=== PATIENT | female | born 1950 | race Caucasian/White ===

== ENCOUNTER → 2021-08-12 10:52 | Outpatient (CLI) | payer OTHER, SELFPAY ==
--- NOTE | 2021-08-12 | DI.MRI.S_ITS ---
PROCEDURE: MR FOOT RT WO CON INDICATIONS: Laceration of muscle and tendon TECHNIQUE: Noncontrast sagittal T1 spin echo and T2 fast spin echo with fat saturation, long-axis T1 spin echo and T2 fast spin echo with fat saturation, short-axis T1 spin echo and T2 fast spin echo with fat saturation through the forefoot. COMPARISON: None. FINDINGS: Image quality: Excellent. Bones and joints: No bone marrow contusions or metatarsal stress fractures. The sesamoid bones appear in expected positions, without internal edema. Moderate 1st MTP joint degeneration with subchondral cystic changes. No intraosseous lesions. Soft tissues: The visualized plantar foot muscles demonstrate normal signal and bulk. Visualized flexor and extensor tendons appear intact, without tenosynovitis. The distal insertions of the peroneus brevis and longus tendons appear intact. The principal Lisfranc ligament appears intact. No soft tissue ganglion cysts or bursal fluid collections. Sagittal images demonstrate no evidence for plantar plate tears. Diffuse dorsal subcutaneous edema IMPRESSION: Diffuse dorsal forefoot subcutaneous edema. Visualized flexor and extensor tendons appear grossly intact. Mild diffuse muscle atrophy otherwise unremarkable muscle signal intensity. Dictated by: Edilberto Valiente M.D. on 08/12/2021 at 12:46 Approved by: Edilberto Valiente M.D. on 08/12/2021 at 12:52
--- NOTE | 2021-08-12 | DI.CT.S_ITS ---
PROCEDURE: CT ABDOMEN PELVIS WO CON INDICATIONS: Laceration of muscle and tendon TECHNIQUE: Noncontrast 5 mm thick sections acquired from the diaphragms to the symphysis. 5 mm coronal and sagittal reformats were then performed. For radiation dose reduction, the following was used: automated exposure control, adjustment of mA and/or kV according to patient size. COMPARISON: None. FINDINGS: Image quality: Excellent. ABDOMEN: Lung bases: Lung bases are clear. Heart size is normal. Solid organs: Liver is normal in size. Gallbladder is normal . Pancreas is normal in contours. Spleen is normal in size. No adrenal nodules. Kidneys are normal in size, without hydronephrosis or nephrolithiasis. The left kidney has a 4 centimeters cyst of the inferior pole. Peritoneum and bowel: Unenhanced bowel loops demonstrate normal wall thickness and caliber. No free fluid or air. There is diverticulosis without evidence of diverticulitis. Nodes and vessels: No retroperitoneal or mesenteric adenopathy by size criteria. Aorta and inferior vena cava are normal in caliber. Miscellaneous: No ventral hernias. PELVIS: Genitourinary: Bladder wall thickness is normal. Miscellaneous: No inguinal hernias or adenopathy. Bones: Degenerative changes with no focal abnormality. Postoperative changes of T12 vertebroplasty. Multilevel degenerative disc disease. IMPRESSION: 1. No nephroureterolithiasis. 2. Diverticulosis without evidence of diverticulitis. Dictated by: Esequiel Dhillon M.D. on 08/12/2021 at 14:13 Approved by: Esequiel Dhillon M.D. on 08/12/2021 at 14:20
== END ==
PROVIDERS: Referring Provider Physician Assistant; Visit Provider Physician Assistant
DX: R31.0 Gross hematuria (principal); S96.121A Laceration of muscle and tendon of long extensor muscle of toe at ankle and foot level, right foot, initial encounter; K57.90 Diverticulosis of intestine, part unspecified, without perforation or abscess without bleeding; X58.XXXA Exposure to other specified factors, initial encounter
CPT/HCPCS: 73718; 74176

== ENCOUNTER → 2021-11-14 13:09 | Outpatient (CLI) | payer OTHER, SELFPAY ==
[2021-11-14 14:14] LABS: BUN Creatinine Ratio 18.8 (6-22); Blood Urea Nitrogen 9 mg/dL (7-17); Estimated Glomerular Filt Rate > 60.0 mL/min (>60)
--- NOTE | 2021-11-14 14:24 | DI.CT.S_ITS ---
PROCEDURE: CT ABDOMEN PELVIS WO/W CON INDICATIONS: urgency of urination TECHNIQUE: Optional 5 mm thick noncontrast images acquired from the diaphragm to the symphysis pubis. After the administration of intravenous contrast, 5 mm thick images acquired from the diaphragm to the symphysis pubis after a 10-minute delay. 2 mm thick coronal and sagittal reformats were then performed of the kidneys and ureters. For radiation dose reduction, the following was used: automated exposure control, adjustment of mA and/or kV according to patient size. COMPARISON: [facility], CT, CT ABDOMEN PELVIS WO CON, 08/12/2021, 11:11. FINDINGS: Image quality: Excellent. Lung bases: Lung bases are clear. Heart size is normal. Urinary system: Both kidneys are normal in size, without hydronephrosis or nephrolithiasis on pre-contrast images. No perinephric fat stranding. There is normal bilateral renal enhancement. Renal calyces appear normal in morphology when filled with contrast. Opacified portions of both ureters demonstrate normal caliber. Bladder wall thickness is normal. No calcified bladder stones. Other solid organs: Liver is normal in size and enhancement. Gallbladder is unremarkable . Biliary system is non dilated. Pancreas enhances normally. Spleen is normal in size and enhancement. No adrenal nodules. Peritoneum and bowel: Diverticulosis without evidence of diverticulitis. Normal caliber bowel. No free fluid or air. Nodes and vessels: No retroperitoneal or mesenteric adenopathy by size criteria. Aorta and inferior vena cava are normal in size. There is atherosclerotic calcification involving the aorta and iliac arteries. There is a mild calcified stenosis of the infrarenal abdominal aorta. Abdominal wall: No ventral hernias. Pelvis: No pathologic free pelvic fluid. Small bilateral fat containing inguinal hernias. No inguinal adenopathy. Posterior pelvic floor relaxation with associated rectocele. Bones: Diffuse lumbar degenerative change. Canal stenosis at L4-L5. Remote percutaneous cement fixation of a moderate T12 compression fracture. No acute compression fractures. No lytic or blastic bony lesions. IMPRESSION: 1. No renal stones, ureteral stones, hydronephrosis, or findings suspicious for malignancy. 2. Posterior pelvic floor relaxation with rectocele. 3. Diverticulosis without evidence of diverticulitis. 4. Atherosclerosis with mild infrarenal abdominal aortic stenosis. Dictated by: Dale Palmer M.D. on 11/14/2021 at 15:31 Approved by: Dale Palmer M.D. on 11/14/2021 at 15:41
== END ==
PROVIDERS: Referring Provider Urology; Visit Provider Urology
DX: R39.15 Urgency of urination (principal); R10.2 Pelvic and perineal pain; K57.90 Diverticulosis of intestine, part unspecified, without perforation or abscess without bleeding; I70.0 Atherosclerosis of aorta; I35.0 Nonrheumatic aortic (valve) stenosis; K40.20 Bilateral inguinal hernia, without obstruction or gangrene, not specified as recurrent; R31.29 Other microscopic hematuria; N81.6 Rectocele; T19.1XXA Foreign body in bladder, initial encounter; G89.29 Other chronic pain; F17.200 Nicotine dependence, unspecified, uncomplicated
CPT/HCPCS: 36415; 74178; 82565; 84520

== ENCOUNTER → 2022-02-23 10:08 | Outpatient (CLI) | payer OTHER, SELFPAY | PROVIDERS: Family Provider Physician Assistant; PCP Physician Assistant; Referring Provider Podiatrist; Visit Provider Podiatrist | DX: R20.9 Unspecified disturbances of skin sensation (principal) | CPT/HCPCS: 95886; 95911 ==

== ENCOUNTER 2022-02-25 07:08 | Emergency (ER) | payer OTHER, SELFPAY ==
[2022-02-25 07:39] VITALS: PULSE 91; O2SAT 95
[2022-02-25 07:40] VITALS: BP 125/66; PULSE 94; RESP 22; TEMP 36.8; O2SAT 95; BMI 36.2
--- NOTE | 2022-02-25 07:51 | ED.FALL ---
HPI - Fall General Chief Complaint: Fall Stated Complaint: chest pain, sob, broken ribs Time Seen by Provider: 02/25/22 07:16 Source: patient Mode of arrival: Ambulatory History of Present Illness HPI Narrative: 72-year-old woman with a history of hypothyroidism, osteoporosis with a T12 compression fracture hypertension COPD who was traveling with her who has severe dementia and on February 10 she missed the last and fell backwards landing on a concrete surface with significant back pain and chest pain. They were on their way to the airport and continued their trip. When she was she saw on a VARGAS Vergara at the [facility] [place] in located [facility] who ordered a chest x-ray. Rib fractures 5 in 6 left side were noted along with an effusion. She was treated with a brief course of [place]. She continues to complain of severe pain, discomfort in any position, unable to sleep and increasing dyspnea. She is scheduled for a thoracentesis on March 26 but does not feel that she can wait that long. She has not had fevers, headache, pelvic/hip path/lower extremity pain or tenderness. She is able to walk. There is no shoulder or upper extremity pain. She is not anticoagulated and she does not describe hitting her head. No recent nausea, vomiting or diarrhea. Related Data Previous Rx's Medication Instructions Recorded benzonatate 200 mg capsule 200 mg PO BID-TID PRN #20 cap 02/25/22 oxycodone-acetaminophen 5 mg-325 1 tab PO Q6H PRN #20 tab 02/25/22 mg tablet Allergies Allergy/AdvReac Type Severity Reaction Status Date / Time No Known Drug Allergies Allergy Verified 02/25/22 07:40 Review of Systems Review of Systems Narrative: Remainder of complete review of systems is otherwise unremarkable except for that included in the HPI. Patient History Medical History (Updated 02/25/22 @ 11:43 by Lenka Welsh MD) COPD (chronic obstructive pulmonary disease) Hypertension Hypothyroidism (acquired) Osteoporosis Social History Smoking Status: Current every day smoker Smoking Status: Current every day smoker alcohol intake frequency: a few times a week Alcohol type: wine Substance Use Type: does not use Exam Initial Vital Signs Initial Vital Signs: Vital Signs Pulse Rate 91 H 02/25/22 07:39 Pulse Oximetry 95 02/25/22 07:39 General: Pale, in moderate distress secondary to pain. Leaning against an upright gurney with a pillow for splinting. Able to give a complete and coherent history. Well-nourished well-developed HEENT: Moist mucous membranes, normal sclera with reactive pupils, Neck: No JVD, supple Respiratory: Lungs decreased excursion throughout secondary to pain. Chest: Some minor bruising appreciated the left lower posterior ribs and some likely heating pad associated skin changes over the right lower ribs but contusion isn't entirely ruled out. She does have tenderness with AP compression of her lungs. There is no specific tenderness along thoracic or lumbar spine to palpation. There are no abrasions and no subcutaneous air palpable Cardiac: Regular rate and rhythm no murmurs no bruits Abdomen: Soft, nontender, good bowel tones, no flank pain Skin: Warm and dry, no rashes Neurologic: Grossly neurologically intact with no obvious asymmetries or abnormalities Extremities: No trauma, well perfused Psych: Cooperative, appropriate insight and affect Course Orders Ordered: ED Orders 02/25/22 08:15 CT chest w con Stat 02/25/22 08:31 Complete Blood Count AUTO DIFF Stat Comprehensive Metabolic Panel Stat Lipase Stat Discontinued Medications Ketorolac Tromethamine (Ketorolac 30 Mg/Ml Vial) 15 mg IV NOW ONE Stop: 02/25/22 08:16 Last Admin: 02/25/22 08:43 Dose: 15 mg Documented by: FLIP Vital Signs Vital signs: Vital Signs - 8 hr 02/25/22 07:39 02/25/22 07:40 02/25/22 08:00 Temperature 98.3 F Pulse Rate 91 H 94 H 79 Respiratory Rate 22 Blood Pressure 125/66 116/77 Pulse Oximetry 95 95 96 02/25/22 08:31 02/25/22 09:00 02/25/22 11:16 Temperature Pulse Rate 83 72 80 Respiratory Rate 24 16 Blood Pressure 103/84 120/59 L 128/62 Pulse Oximetry 93 92 94 MDM - Fall Lab Data Result diagrams: 02/25/22 08:31 02/25/22 08:31 Labs: Lab Results 02/25/22 02/25/22 02/25/22 Range/Units 08:31 08:31 08:31 WBC 9.2 (4.5-11.0) X10^3/uL RBC 4.50 (4.0-5.2) X10^6/uL Hgb 16.3 H (12.0-16.0) g/dL Hct 47.7 H (36-46) % MCV 106.2 H (80-100) fL MCH 36.2 H (26-34) PG MCHC 34.1 (30-36) % RDW 14.3 (11.6-14.8) % Plt Count 311 (150-400) X10^3/uL Neut % (Auto) 71.7 (50-75) % Lymph % (Auto) 16.1 L (25-40) % [place] % (Auto) 9.0 (3-14) % Eos % (Auto) 2.3 (2-4) % Baso % (Auto) 0.9 (0-2) % Neut # (Auto) 6600 (6905-2197) /uL Lymph # (Auto) 1500 (1230-4668) /uL [place] # (Auto) 800 (0-900) /uL Eos # (Auto) 200 (0-450) /uL Baso # (Auto) 100 (0-100) /uL Sodium 135 L (137-145) mmol/L Potassium 4.2 (3.4-5.1) mmol/L Chloride 99 (98-107) mmol/L Carbon Dioxide 29 (22-32) mmol/L BUN 6 L (7-17) mg/dL Creatinine 0.53 (0.52-1.04) mg/dL Estimated GFR > 60 (>60) mL/min BUN/Creatinine Ratio 11.3 (6-22) Glucose 93 (80-110) mg/dL Calcium 9.3 (8.4-10.2) mg/dL Total Bilirubin 1.2 (0.2-1.3) mg/dL AST 32 (14-36) IU/L ALT 26 (<35) IU/L Alkaline Phosphatase 124 (38-126) U/L Total Protein 8.0 (6.3-8.2) g/dL Albumin 4.5 (3.5-5.0) g/dL Globulin 3.5 (1.7-4.1) g/dL Albumin/Globulin Ratio 1.3 (1.0-2.8) Lipase 34 (23-300) U/L Imaging Data CT scan - chest: Radiologist's Impression: FINDINGS:? Image quality:? Excellent.? ? Lungs and pleura:? No acute air space opacities.? Mild presumed dependent atelectasis can be seen.? No pleural effusions or pneumothorax.? Central and peripheral airways are patent and normal in caliber.? ? Mediastinum:? Heart size is normal.? There is at least moderate coronary artery calcification.? No pericardial effusion.? No mediastinal or hilar adenopathy by size criteria.? Thoracic aorta and central pulmonary arteries are normal in size.? Esophagus is normal in caliber.? No hiatal hernia.? ? Bones and chest wall:? The left anterior 3rd rib demonstrates a minimally displaced fracture, as on series 3, image 76. There is a potential nondisplaced fracture of the left anterior 4th rib.? There is a mildly displaced rib fracture seen involving the left anterolateral 5th rib, as on series 3, image 106. There is a likely nondisplaced fracture seen involving the left anterior 6th rib, as on series 3, image 148. No additional displaced rib fractures are seen.? ? Accentuated thoracic kyphosis is seen.? Age-appropriate bony degenerative changes are seen.? There is a remote T12 fracture, with vertebroplasty cement.? [id number] dextroconvex scoliosis. ? ? No suspicious bony lesions.? No vertebral body compression fractures.? No axillary or supraclavicular adenopathy by size criteria.? Thyroid gland is small in size.? ? Abdomen:? An enlarged, fatty infiltrated liver can be seen.? There is a 4 cm area relatively increased enhancement seen involving the right lateral liver, as on series 2, image 48 and on series 5, image 45. Along the lateral aspect of the left kidney, there is a water density cyst seen that measures 2.8 cm. The visualized portions of the upper abdominal structures are otherwise unremarkable for imaging technique. ? IMPRESSION:? Left anterolateral rib fractures are seen. ? No associated pneumothorax is seen. ? Enlarged, fatty liver, with potential fatty sparing involving the right liver.? However, in a patient of this age, differential diagnosis includes a mass.? When clinically appropriate, please consider a scheduled liver protocol MRI (without and with contrast) for further evaluation (assuming that there is no contraindication).? ? ? Incidental note is made of: At least moderate coronary artery calcification Remote T12 fracture, with vertebroplasty cement [id number] dextroconvex scoliotic curvature Simple appearing left renal cyst ? Dictated by: Felipe Alonzo M.D. on 02/25/2022 at 8:43? ?? MDM Narrative Medical decision making narrative: 72-year-old woman now 14 days past significant fall with initially diagnosed 2 rib fractures, unable to take a deep breath, sleep, do more than sit upright and was told she had a pleural effusion but and is scheduled for thoracentesis in mid March. She comes in for further evaluation. With known propensity for worse as findings on CT scan given trauma in 72-year-old woman a CT scan of the chest was done and in fact does show a total of 4 left-sided rib fractures without hemopneumothorax, no new compression fractures or additional findings. Patient actually felt quite a bit better with Toradol she is given incentive spirometer and teaching to go with that and will send her home with a prescription for Tessalon to help reduce the cough and Percocet to take along with ibuprofen for pain control. She will follow-up with her primary care physician Discharge Plan Departure Patient Disposition: Home Clinical Impression: Fracture, ribs Qualifiers: Encounter type: initial encounter Fracture type: closed Laterality: left Qualified Code(s): S22.42XA - Multiple fractures of ribs, left side, initial encounter for closed fracture Fall Qualifiers: Encounter type: subsequent encounter Qualified Code(s): W19.XXXD - Unspecified fall, subsequent encounter Instructions: DI for Rib Fracture Activity Restrictions/Additional Instructions: Thank you for coming in today The CT scan of your chest shows a total of 4 broken ribs which explains why your hurting so much. Fortunately, your body has absorbed any of the blood or fluid that was noticed on the x-ray last week. You do not need to have a thoracentesis. Using 400 mg of ibuprofen (2 kbkx-cvl-[id number] pills) and 1 Tylenol every 6 hours can be very helpful in controlling pain. For severe pain use 400 mg of ibuprofen +1 Percocet and if that is not enough particularly to get a couple of hours sleep you can use 2 Percocet. Percocet is narcotic and will make you constipated. Please make sure you are using stool softeners Prescriptions went to [facility] in [place] I hope you continue to heal Prescriptions: New oxycodone-acetaminophen 5-325 mg tablet 1 tab PO Q6H PRN (Reason: pain) Qty: 20 0RF benzonatate 200 mg capsule 200 mg PO BID-TID PRN (Reason: cough) Qty: 20 0RF Referrals: Brandon Vergara PA-C [Primary Care Provider] -
[2022-02-25 08:00] VITALS: BP 116/77; PULSE 79; O2SAT 96
--- NOTE | 2022-02-25 08:15 | DI.CT.S_ITS ---
PROCEDURE: CT CHEST W CON INDICATIONS: Severe fall 02/10, left ribs 5/6 and effusion TECHNIQUE: After the administration of intravenous contrast, 5 mm thick sections acquired from the pulmonary apices to the posterior costophrenic angles. 1 mm axial lung, 5 mm thick coronal and sagittal reformats and 7 mm axial MIP were acquired. For radiation dose reduction, the following was used: automated exposure control, adjustment of mA and/or kV according to patient size. COMPARISON: [facility], CT, CT ABDOMEN PELVIS WO CON, 08/12/2021, 11:11. [facility], CT, CT ABDOMEN PELVIS WO/W CON, 11/14/2021, 14:31. FINDINGS: Image quality: Excellent. Lungs and pleura: No acute air space opacities. Mild presumed dependent atelectasis can be seen. No pleural effusions or pneumothorax. Central and peripheral airways are patent and normal in caliber. Mediastinum: Heart size is normal. There is at least moderate coronary artery calcification. No pericardial effusion. No mediastinal or hilar adenopathy by size criteria. Thoracic aorta and central pulmonary arteries are normal in size. Esophagus is normal in caliber. No hiatal hernia. Bones and chest wall: The left anterior 3rd rib demonstrates a minimally displaced fracture, as on series 3, image 76. There is a potential nondisplaced fracture of the left anterior 4th rib. There is a mildly displaced rib fracture seen involving the left anterolateral 5th rib, as on series 3, image 106. There is a likely nondisplaced fracture seen involving the left anterior 6th rib, as on series 3, image 148. No additional displaced rib fractures are seen. Accentuated thoracic kyphosis is seen. Age-appropriate bony degenerative changes are seen. There is a remote T12 fracture, with vertebroplasty cement. Rmik-hn-rbotbbue dextroconvex scoliosis. No suspicious bony lesions. No vertebral body compression fractures. No axillary or supraclavicular adenopathy by size criteria. Thyroid gland is small in size. Abdomen: An enlarged, fatty infiltrated liver can be seen. There is a 4 cm area relatively increased enhancement seen involving the right lateral liver, as on series 2, image 48 and on series 5, image 45. Along the lateral aspect of the left kidney, there is a water density cyst seen that measures 2.8 cm. The visualized portions of the upper abdominal structures are otherwise unremarkable for imaging technique. IMPRESSION: Left anterolateral rib fractures are seen. No associated pneumothorax is seen. Enlarged, fatty liver, with potential fatty sparing involving the right liver. However, in a patient of this age, differential diagnosis includes a mass. When clinically appropriate, please consider a scheduled liver protocol MRI (without and with contrast) for further evaluation (assuming that there is no contraindication). Incidental note is made of: At least moderate coronary artery calcification Remote T12 fracture, with vertebroplasty cement [id number] dextroconvex scoliotic curvature Simple appearing left renal cyst Dictated by: Felipe Alonzo M.D. on 02/25/2022 at 8:43 Approved by: Felipe Alonzo M.D. on 02/25/2022 at 8:50
[2022-02-25 08:31] VITALS: BP 103/84; PULSE 83; O2SAT 93
[2022-02-25] MEDS: KETOROLAC 30 MG/ML VIAL 15 MG IV (08:43)
[2022-02-25 08:47] LABS: Add Manual Diff / Slide Review NO; Basophils Absolute Auto 100 /uL (0-100); Basophils Percent Auto 0.9 % (0-2); Eosinophils Absolute Auto 200 /uL (0-450); Eosinophils Percent Auto 2.3 % (2-4); Hematocrit 47.7 % (36-46); Hemoglobin 16.3 g/dL (12.0-16.0); Lymphocytes Absolute Auto 1500 /uL (1100-4500); Lymphocytes Percent Auto 16.1 % (25-40); Mean Corpuscular HGB Conc 34.1 % (30-36); Mean Corpuscular Hemoglobin 36.2 PG (26-34); Mean Corpuscular Volume 106.2 fL (80-100); Monocytes Absolute Auto 800 /uL (0-900); Neutrophils Absolute Auto 6600 /uL (1500-7000); Neutrophils Percent Auto 71.7 % (50-75); Platelet Count 311 X10^3/uL (150-400); Red Cell Distribution Width 14.3 % (11.6-14.8); White Blood Cell Count 9.2 X10^3/uL (4.5-11.0)
[2022-02-25 09:00] VITALS: BP 120/59; PULSE 72; RESP 24; O2SAT 92
[2022-02-25 09:16] LABS: Alanine Aminotransferase 26 IU/L (<35); Albumin 4.5 g/dL (3.5-5.0); Albumin Globulin Ratio 1.3 (1.0-2.8); Alkaline Phosphatase 124 U/L (38-126); Aspartate Aminotransferase 32 IU/L (14-36); BUN Creatinine Ratio 11.3 (6-22); Bilirubin Total 1.2 mg/dL (0.2-1.3); Blood Urea Nitrogen 6 mg/dL (7-17); Calcium 9.3 mg/dL (8.4-10.2); Carbon Dioxide 29 mmol/L (22-32); Chloride 99 mmol/L (98-107); Estimated Glomerular Filt Rate > 60 mL/min (>60); Globulin 3.5 g/dL (1.7-4.1); Glucose 93 mg/dL (80-110); HEMOLYSIS < 15 (0-50); Lipase 34 U/L (23-300); Potassium 4.2 mmol/L (3.4-5.1); Sodium 135 mmol/L (137-145)
[2022-02-25 11:16] VITALS: BP 128/62; PULSE 80; RESP 16; O2SAT 94
== END 2022-02-25 11:54 | disposition home or self-care (01) ==
PROVIDERS: Emergency Provider Emergency Medicine; Family Provider Physician Assistant; PCP Physician Assistant
DX: S22.42XD Multiple fractures of ribs, left side, subsequent encounter for fracture with routine healing (principal); F17.200 Nicotine dependence, unspecified, uncomplicated; W19.XXXD Unspecified fall, subsequent encounter
CPT/HCPCS: 36415; 71260; 80053; 83690; 85025; 96374; 99284; J1885; Q9967

== ENCOUNTER → 2022-05-26 08:38 | Outpatient (CLI) | payer OTHER, SELFPAY ==
--- NOTE | 2022-05-26 | DI.MRI.S_ITS ---
PROCEDURE: MR LUMBAR SPINE WO CON INDICATIONS: WEAKNESS OF RIGHT FOOT TECHNIQUE: Noncontrast sagittal T1 spin echo and T2 fast echo, sagittal STIR, and T2 fast spin echo through the lumbar spine. In cases with scoliosis, additional coronal T2 fast spin echo may be performed. COMPARISON: [facility], CT, CT ABDOMEN PELVIS WO/W CON, 11/14/2021, 14:31. FINDINGS: Image quality: Excellent. Alignment and Curvature: There is 3 mm retrolisthesis of L1 on L2, L2 on L3, L3 on L4. Bone Marrow: Marrow is of normal overall signal. Vertebral/kyphoplasty changes are present at T12. There is partially visualized endplate changes at T11-12. Spinal Cord: Conus medullaris terminates at the L1 level. Visualized cord demonstrates normal signal and size. Paraspinous Soft Tissues: No paravertebral masses. Discs: Multilevel severe disc desiccation is present. T12-L1: Mild disc bulge with moderate left foraminal narrowing. L1-L2: Mild disc bulge including a left lateral disc osteophyte complex. There is minimal spinal stenosis as well as moderate bilateral foraminal narrowing with facet and ligamentum flavum hypertrophy. L2-L3: Mild disc bulge with mild spinal stenosis. Moderate to severe bilateral foraminal narrowing with facet and ligamentum flavum hypertrophy. L3-L4: Mild disc bulge with severe spinal stenosis and canal compression. Severe bilateral foraminal narrowing, right greater than left with compression of the exiting L3 nerve roots. Prominent epidural lipomatosis as well as facet and ligamentum flavum hypertrophy are present. L4-L5: Mild disc bulge with severe spinal stenosis and canal compression. Epidural lipomatosis is present. Mild left and severe right foraminal narrowing with compression of the exiting L4 nerve root. Facet hypertrophy is present. L5-S1: Mild disc bulge without spinal stenosis. Severe right foraminal narrowing with slight flattening of the exiting L5 nerve roots. Facet hypertrophy is present. IMPRESSION: Multilevel disc bulges. Multilevel spinal stenosis severe at L3-4 and L4-5 secondary to disc bulge with significant epidural lipomatosis at these levels. Multilevel foraminal narrowing severe at L3-4, L4-5 and L5-S1 secondary to facet arthropathy. Dictated by: Lise Nair M.D. on 05/26/2022 at 15:41 Approved by: Lise Nair M.D. on 05/26/2022 at 16:04
== END ==
PROVIDERS: Family Provider Physician Assistant; PCP Physician Assistant; Referring Provider Physician Assistant; Visit Provider Physician Assistant
DX: R29.898 Other symptoms and signs involving the musculoskeletal system (principal); M51.26 Other intervertebral disc displacement, lumbar region; M48.061 Spinal stenosis, lumbar region without neurogenic claudication; E88.2 Lipomatosis, not elsewhere classified; M47.816 Spondylosis without myelopathy or radiculopathy, lumbar region
CPT/HCPCS: 72148

== ENCOUNTER → 2022-11-22 09:41 | Outpatient (CLI) | payer OTHER, SELFPAY | PROVIDERS: Family Provider Physician Assistant; PCP Physician Assistant; Referring Provider Internal Medicine; Visit Provider Internal Medicine | DX: M06.9 Rheumatoid arthritis, unspecified (principal); M81.0 Age-related osteoporosis without current pathological fracture; Z13.820 Encounter for screening for osteoporosis; Z78.0 Asymptomatic menopausal state; Z79.83 Long term (current) use of bisphosphonates; Z87.311 Personal history of (healed) other pathological fracture; Z90.710 Acquired absence of both cervix and uterus | CPT/HCPCS: 77080 ==

== ENCOUNTER → 2023-10-02 11:47 | Outpatient (CLI) | payer OTHER, SELFPAY ==
[2023-10-02 12:30] LABS: Estimated Glomerular Filt Rate > 60 mL/min (>60)
--- NOTE | 2023-10-02 13:16 | DI.CT.S_ITS ---
PROCEDURE: CT CHEST ABD PEL W CON INDICATIONS: ABNORMAL WEIGHT LOSS/LAB EO TECHNIQUE: After the administration of oral and intravenous contrast, axial sections acquired from the supraclavicular neck to the pubic symphysis. Coronal and sagittal reformats were performed. For radiation dose reduction, the following was used: automated exposure control, adjustment of mA and/or kV according to patient size. COMPARISON: [facility], CT, CT CHEST W CON, 02/25/2022, 9:27. [facility], CT, CT ABDOMEN PELVIS WO/W CON, 11/14/2021, 14:31. FINDINGS: Image quality: Good Lungs and pleura: Emphysematous changes. Scattered [id number] scarring and atelectasis. No dense consolidation. No pleural effusions. Fissural nodules may represent lymph nodes. Scattered pulmonary nodules are mostly stable compared to 2021. There might be a new nodule at the right costophrenic angle measuring about 6 millimeters (3/219). Mediastinum, heart, and esophagus: No hiatal hernia. Coronary calcifications. Normal heart size. No pathologic lymph nodes by size criteria. Chest wall and thyroid: There are atherosclerotic calcifications. Thyroid is not well seen. Chest wall is otherwise unremarkable. Solid organs: Hyperattenuating region is again seen in the lateral portion of the right hepatic lobe. Focal suspected biliary dilation is also seen in segment 8 (2/51). Gallbladder is unremarkable. No pathologic dilation of the biliary system otherwise. The pancreatic duct is nondilated. No splenomegaly. No adrenal nodules. Left adrenal thickening is again seen. Bosniak 1 and 2 renal lesions are present, for which no dedicated followup is necessary per latest proposed guidelines. No hydronephrosis. Vessels and lymph nodes: The main portal vein appears patent. Atherosclerotic calcifications. No abdominal aortic aneurysm. No pathologic lymph nodes by size criteria. Bowel and peritoneum: No evidence of small bowel obstruction. No pathologic ascites. Moderate to large fecal loading. Colonic diverticula. Body wall: Tiny fat containing umbilical hernia. Pelvis: Bladder is unremarkable. Uterus is absent. Bones: No acute or suspicious osseous finding. There are degenerative changes. Small sclerotic bone lesions may represent bone islands. Sequela of vertebral augmentation. Nonacute appearing rib deformities are seen. IMPRESSION: No definite disseminated metastatic disease. There are many pulmonary nodules, most of which are stable compared to 2021. A possible new right costophrenic angle nodule is seen measuring 6-7 millimeters (3/219). Consider six-month follow-up or sooner. In the liver, hyperattenuating lesion in the periphery of the right lobe. Possible focal ductal dilation in segment 8. These were likely also present in 2021. If further evaluation is desired, consider liver MRI. No acute thoracic or abdominal pelvic abnormality. Other findings as above. Dictated by: Robert Franz M.D. on 10/02/2023 at 14:05 Approved by: Robert Franz M.D. on 10/02/2023 at 14:17
== END ==
PROVIDERS: Radiology Diagnostic Radiology; Family Provider Physician Assistant; PCP Physician Assistant; Referring Provider Physician Assistant; Visit Provider Physician Assistant
DX: K76.9 Liver disease, unspecified (principal); R91.8 Other nonspecific abnormal finding of lung field; N28.9 Disorder of kidney and ureter, unspecified; R63.4 Abnormal weight loss; I25.10 Atherosclerotic heart disease of native coronary artery without angina pectoris; M89.9 Disorder of bone, unspecified
CPT/HCPCS: 36415; 71260; 74177; 82565

== ENCOUNTER → 2025-08-17 09:35 | Outpatient (CLI) | payer OTHER, SELFPAY ==
--- NOTE | 2025-08-17 09:38 | DI.RAD.S_ITS ---
PROCEDURE: XR DEXA AXIAL SKELETON INDICATIONS: Osteoporosis Screening COMPARISON: [facility], CR, XR DEXA AXIAL SKELETON, 11/22/2022, 10:11. FINDINGS: Lumbar Spine (L1-L3): Bone mineral density 1.211 g/cm2, T score 1.8, -2.7%, denotes dissimilar scan types or analysis methods. Left Femoral Neck: Bone mineral density 0.658 g/cm2, T score -1.7. Left Hip: Bone mineral density 0.784 g/cm2, T score -1.3, -8.2%, denotes dissimilar scan types or analysis methods. Fracture Risk Calculation (when applicable): 10-year fracture risk of a major osteoporotic fracture 20 percent and of a hip fracture 6.7 percent. (T score greater or equal to -1.0 to: NORMAL) (T score from -1.1 to -2.4: OSTEOPENIA) (T score less than or equal to -2.5: OSTEOPOROSIS) IMPRESSION: Left hip indicate osteopenia. See guidelines below. Follow-up guidelines as follows: Osteoporosis: Consider a repeat DEXA and Vertebral Fracture Assessment (VFA) exam in 2 years or sooner if medically necessary, to reassess this patient's status. Osteopenia: Consider a repeat DEXA in 2-3 years to reassess this patient's status, or if there is a new clinical indication. Normal: Consider a repeat DEXA in 5 years or sooner, or if there is a new clinical indication. All treatment decisions require clinical judgment and consideration of individual patient factors, including patient preferences, comorbidities, previous drug use, risk factors not captured in the FRAX model (e.g., frailty, falls, vitamin D deficiency, increased bone turnover, interval significant decline in bone density ) and possible under- or over-estimation of fracture risk by FRAX. In addition, the NOF Guide recommends that FDA-approved medical therapies be considered in postmenopausal women and men age >= 50 years with a: * Hip or vertebral (clinical or morphometric) fracture * T-score of <=-2.5 at the spine or hip * Ten-year fracture probability by FRAX of >= 3% for hip fracture or >=20% for major osteoporotic fracture. Dictated by: Leslie Cruz RRA Interpreted: Raulito Jauregui MD on 08/17/2025 at 13:31 Transcribed by: MARITO on 08/17/2025 at 13:33 Approved by: Raulito Jauregui M.D. on 08/17/2025 at 17:32
== END ==
PROVIDERS: PCP Internal Medicine; Referring Provider Physician Assistant; Visit Provider Physician Assistant
DX: M81.0 Age-related osteoporosis without current pathological fracture (principal)
CPT/HCPCS: 77080